=== PATIENT | female | born 1980 | race Caucasian/White ===

== ENCOUNTER 2017-03-04 14:25 | Inpatient (IN) | payer OTHER ==
[~2017-03-04] VITALS: Ht 160 cm; Wt 65.7 kg
[~2017-03-04 14:25] MED LIST: ALEVE220 MG PO; ATIVAN0.5 MG PO; CIPROFLOXACIN500 M1 PO; CREON 10 CAPSUL1 CA1 PO; CREON DR 12,001 EACH PO; DILAUDID 2 MG TA2 MG PO; IRON325 PO; KEFLEX500 MG PO; LISINOPRIL2.5 MG PO; MACROBID 100 M100 M1 PO; NORCO 5-325 TA1 EACH PO; ONDANSETRON HCL4 M2 PO; OXYCODONE HCL 55 MG PO; PERCOCET 5-3251 EACH PO; PHENERGAN 25 MG25 M1 PO; TRAMADOL 50 MG50 MG PO; TYLENOL325 MG PO; ZESTRIL2.5 MG PO; ZOFRAN 4 MG ORAL4 MG PO; ZOFRAN ODT4 MG PO; ZOFRAN4 MG PO
[2017-03-04 14:26] VITALS: BP 160/108
[2017-03-04 14:39] LABS: URINE BILIRUBIN NEGATIVE (Negative); URINE BLOOD NEGATIVE (Negative); URINE COLOR YELLOW; URINE GLUCOSE-RANDOM* NEGATIVE (Negative); URINE KETONES NEGATIVE (Negative); URINE NITRITE NEGATIVE (Negative); URINE PROTEIN (DIPSTICK) NEGATIVE (Negative); URINE UROBILINOGEN 0.2 E.U./dl (0.2-1.0)
[2017-03-04 15:11] LABS: HEMATOCRIT 30.2 % (37.0-47.0); HEMOGLOBIN 9.2 gm/dL (12.0-15.0); MANUAL DIFF YES; MCH 21.2 pg (26.0-34.0); MCHC 30.6 g/dL (28.0-37.0); MCV 69.3 fL (80.0-100.0); PLATELET COUNT 549 thou/uL (150-400); RBC 4.36 mil/uL (4.20-5.00); RDW 23.7 % (10.5-14.5); WBC 8.9 thou/uL (4.0-11.0)
[2017-03-04 15:13] LABS: AMP/METHAMP Negative (Negative); BARBITURATES Negative (Negative); BENZODIAZEPINES Negative (Negative); COCAINE Negative (Negative); METHADONE Negative (Negative); OPIATES POSITIVE (Negative); PCP Negative (Negative); THC POSITIVE (Negative)
[2017-03-04 15:16] LABS: CREATININE 0.6 mg/dL (0.6-1.0); POTASSIUM 4.5 mmol/L (3.5-5.1)
[2017-03-04 15:20] LABS: ALBUMIN 2.6 g/dL (3.4-5.0); TOTAL BILIRUBIN 0.3 mg/dL (<0.1-1.0); TOTAL PROTEIN 6.6 g/dL (6.4-8.2)
[2017-03-04 15:31] LABS: ABSOLUTE NEUTROPHILS 4.8 thou/uL (1.4-8.2); TOTAL CELL COUNT 100
[2017-03-04 15:32] LABS: HYPOCHROMASIA 3+; MICROCYTES 2+
[2017-03-04 15:33] LABS: ANISOCYTOSIS 3+; POIKILOCYTOSIS 1+; TARGET CELLS 2+
[2017-03-04 15:34] LABS: HOWELL-JOLLY BODIES OCCASIONAL
[2017-03-04 17:18] VITALS: BP 132/86
[2017-03-04 17:43] VITALS: BP 146/106
[2017-03-04 17:53] VITALS: BP 152/92
[2017-03-04 18:28] VITALS: BP 146/92
[2017-03-04 20:00] VITALS: BP 137/102
[2017-03-05 04:00] VITALS: BP 113/69
[2017-03-05 06:28] LABS: ALBUMIN 2.2 g/dL (3.4-5.0); CREATININE 0.7 mg/dL (0.6-1.0); MAGNESIUM 1.6 mg/dL (1.8-2.4); POTASSIUM 4.2 mmol/L (3.5-5.1); TOTAL BILIRUBIN 0.2 mg/dL (<0.1-1.0); TOTAL PROTEIN 5.1 g/dL (6.4-8.2)
[2017-03-05 07:25] VITALS: BP 131/74
[2017-03-05] MEDS ORDERED: OXYCONTIN10 M1 PO (09:35)
[2017-03-05] MEDS ORDERED: PERCOCET 7.5-31 EACH PO (09:35)
[2017-03-05 13:07] VITALS: BP 131/74
== END 2017-03-05 13:17 | disposition home or self-care (01) | DRG 392 ==
LOC: ER 14:25 → 4E 16:29 → EROBS 16:29 → 4E 17:21
PROVIDERS: Emergency Medicine; Hospitalist; Physician Assistant
DX: R10.9 Unspecified abdominal pain (principal); G89.29 Other chronic pain; R11.2 Nausea with vomiting, unspecified; K21.9 Gastro-esophageal reflux disease without esophagitis; F32.9 Major depressive disorder, single episode, unspecified; F17.210 Nicotine dependence, cigarettes, uncomplicated; F12.90 Cannabis use, unspecified, uncomplicated; Z90.49 Acquired absence of other specified parts of digestive tract; Z88.6 Allergy status to analgesic agent; Z90.3 Acquired absence of stomach [part of]; Z90.81 Acquired absence of spleen; Z79.899 Other long term (current) drug therapy
CPT/HCPCS: 10084

== ENCOUNTER 2017-06-10 14:38 | Inpatient (IN) | payer OTHER ==
[~2017-06-10] VITALS: Ht 160 cm; Wt 61.5 kg
[~2017-06-10 14:38] MED LIST changes: +OXYCONTIN10 M1 PO; +PERCOCET 7.5-31 EACH PO
[2017-06-10 14:39] VITALS: BP 164/134
[2017-06-10 14:58] LABS: URINE BILIRUBIN NEGATIVE (Negative); URINE BLOOD 2+ (Negative); URINE COLOR YELLOW; URINE GLUCOSE-RANDOM* NEGATIVE (Negative); URINE KETONES NEGATIVE (Negative); URINE NITRITE NEGATIVE (Negative); URINE PROTEIN (DIPSTICK) 1+ (Negative); URINE SPECIFIC GRAVITY >= 1.030 (1.003-1.035); URINE UROBILINOGEN 0.2 E.U./dl (0.2-1.0)
[2017-06-10 15:07] LABS: SQUAMOUS >10 Many /LPF (0-3)
[2017-06-10 15:08] LABS: CRYSTALS None Seen /LPF (None Seen); HYALINE CASTS 0-3 Few /LPF (None Seen); URINE RBC 3-10 Few /HPF (0-2)
[2017-06-10 16:29] LABS: HEMOGLOBIN 10.3 gm/dL (12.0-15.0); MANUAL DIFF YES; MCH 22.6 pg (26.0-34.0); MCHC 30.3 g/dL (28.0-37.0); MCV 74.7 fL (80.0-100.0); PLATELET COUNT 493 thou/uL (150-400); RBC 4.55 mil/uL (4.20-5.00); RDW 20.7 % (10.5-14.5); WBC 14.2 thou/uL (4.0-11.0)
[2017-06-10 16:35] LABS: CALCIUM 8.7 mg/dL (8.5-10.1); CREATININE 0.7 mg/dL (0.6-1.0); POTASSIUM 3.9 mmol/L (3.5-5.1)
[2017-06-10 16:39] LABS: ALBUMIN 2.9 g/dL (3.4-5.0); TOTAL BILIRUBIN 0.3 mg/dL (<0.1-1.0); TOTAL PROTEIN 6.8 g/dL (6.4-8.2)
[2017-06-10 17:01] LABS: ABSOLUTE NEUTROPHILS 11.8 thou/uL (1.4-8.2); TOTAL CELL COUNT 100
[2017-06-10 17:02] LABS: TARGET CELLS 3+
[2017-06-10 17:03] LABS: ANISOCYTOSIS 2+; LARGE PLATELETS FEW; MICROCYTES 2+; SCHISTOCYTES 2+
[2017-06-10 18:46] LABS: AMP/METHAMP Negative (Negative); BARBITURATES Negative (Negative); BENZODIAZEPINES Negative (Negative); COCAINE Negative (Negative); METHADONE Negative (Negative); OPIATES Negative (Negative); PCP Negative (Negative); THC Negative (Negative)
[2017-06-10 21:06] VITALS: BP 191/111
[2017-06-10 21:52] VITALS: BP 143/93
[2017-06-10 23:34] VITALS: BP 149/91
[2017-06-11 04:05] VITALS: BP 142/101
[2017-06-11 06:34] LABS: HEMOGLOBIN 9.4 gm/dL (12.0-15.0); MCH 23.1 pg (26.0-34.0); MCHC 31.2 g/dL (28.0-37.0); PLATELET COUNT 460 thou/uL (150-400); RBC 4.05 mil/uL (4.20-5.00); RDW 21.4 % (10.5-14.5); WBC 12.1 thou/uL (4.0-11.0)
[2017-06-11 06:37] LABS: CALCIUM 8.2 mg/dL (8.5-10.1); CREATININE 0.6 mg/dL (0.6-1.0); POTASSIUM 3.6 mmol/L (3.5-5.1)
[2017-06-11 06:41] LABS: % SATURATION 8 % (20-39); IRON 34 ug/dL (50-170); TIBC 445 ug/dL (250-450); UIBC 411 ug/dL
[2017-06-11 06:55] LABS: MANUAL DIFF YES
[2017-06-11 08:00] VITALS: BP 142/93
[2017-06-11 08:13] LABS: ABSOLUTE NEUTROPHILS 6.1 thou/uL (1.4-8.2); TOTAL CELL COUNT 100
[2017-06-11 08:16] LABS: ANISOCYTOSIS 2+; HYPOCHROMASIA 2+; MICROCYTES 1+; PLATELET ESTIMATE INCREASED
[2017-06-11 08:17] LABS: POIKILOCYTOSIS 2+; SCHISTOCYTES 1+; TARGET CELLS 2+
[2017-06-11 16:00] VITALS: BP 189/111
[2017-06-11 19:52] VITALS: BP 166/96
[2017-06-12 03:45] VITALS: BP 145/86
[2017-06-12 03:55] LABS: BASOPHILS 1.1 % (0.0-2.0); EOSINOPHILS 0.3 % (0.0-3.0); HEMOGLOBIN 8.4 gm/dL (12.0-15.0); MCV 73.9 fL (80.0-100.0); RDW 21.3 % (10.5-14.5)
[2017-06-12 03:58] LABS: ABSOLUTE NEUTROPHILS 9.2 thou/uL (1.4-8.2); MCH 23.1 pg (26.0-34.0); MCHC 31.3 g/dL (28.0-37.0); MONOCYTES 5.8 % (1.0-8.0); PLATELET COUNT 393 thou/uL (150-400); POLYS 79.8 % (36.0-66.0); RBC 3.65 mil/uL (4.20-5.00); WBC 11.5 thou/uL (4.0-11.0)
[2017-06-12 03:59] LABS: MANUAL DIFF NO
[2017-06-12 04:14] LABS: ALBUMIN 2.1 g/dL (3.4-5.0); CREATININE 0.6 mg/dL (0.6-1.0); MAGNESIUM 1.3 mg/dL (1.8-2.4); POTASSIUM 3.8 mmol/L (3.5-5.1); TOTAL BILIRUBIN 0.3 mg/dL (<0.1-1.0); TOTAL PROTEIN 5.6 g/dL (6.4-8.2)
[2017-06-12 05:12] LABS: ANISOCYTOSIS 2+; HYPOCHROMASIA 1+
[2017-06-12 05:13] LABS: MICROCYTES 1+
[2017-06-12 05:14] LABS: HOWELL-JOLLY BODIES OCCASIONAL
[2017-06-12 05:15] LABS: BURR CELLS FEW; OVALOCYTES OCCASIONAL; TARGET CELLS OCCASIONAL
[2017-06-12 05:16] LABS: POIKILOCYTOSIS 1+; POLYCHROMASIA OCCASIONAL; SCHISTOCYTES OCCASIONAL
[2017-06-12 08:21] VITALS: BP 148/62
[2017-06-12 15:08] VITALS: BP 145/91
[2017-06-12 20:11] VITALS: BP 150/92
[2017-06-13 04:08] VITALS: BP 143/77
[2017-06-13 05:36] LABS: HEMOGLOBIN 8.6 gm/dL (12.0-15.0)
[2017-06-13 05:39] LABS: HEMATOCRIT 27.5 % (37.0-47.0); MCH 23.5 pg (26.0-34.0); MCHC 31.2 g/dL (28.0-37.0); MCV 75.3 fL (80.0-100.0); PLATELET COUNT 419 thou/uL (150-400); RBC 3.65 mil/uL (4.20-5.00); RDW 21.7 % (10.5-14.5); WBC 8.3 thou/uL (4.0-11.0)
[2017-06-13 05:41] LABS: MANUAL DIFF YES
[2017-06-13 06:09] LABS: ALBUMIN 2.2 g/dL (3.4-5.0); CALCIUM 8.4 mg/dL (8.5-10.1); CREATININE 0.6 mg/dL (0.6-1.0); MAGNESIUM 1.7 mg/dL (1.8-2.4); POTASSIUM 3.3 mmol/L (3.5-5.1); TOTAL BILIRUBIN 0.2 mg/dL (<0.1-1.0); TOTAL PROTEIN 5.8 g/dL (6.4-8.2)
[2017-06-13 08:00] VITALS: BP 156/91
[2017-06-13 10:00] LABS: ABSOLUTE NEUTROPHILS 4.4 thou/uL (1.4-8.2); NUCLEATED RBCS 1 /100WBC; TOTAL CELL COUNT 100
[2017-06-13 10:01] LABS: ANISOCYTOSIS 2+; HYPOCHROMASIA 1+
[2017-06-13 10:02] LABS: SCHISTOCYTES RARE
[2017-06-13 16:00] VITALS: BP 150/108
[2017-06-13 21:02] VITALS: BP 167/99
[2017-06-14 03:32] VITALS: BP 1401/86
[2017-06-14 05:37] LABS: CALCIUM 7.6 mg/dL (8.5-10.1); CREATININE 0.5 mg/dL (0.6-1.0)
[2017-06-14 07:30] VITALS: BP 156/104
== END 2017-06-14 09:50 | disposition left against medical advice (07) | DRG 439 ==
LOC: ER 14:38 → EROBS 18:30 → 3N 18:30
PROVIDERS: Internal Medicine Endocrinology, Diabetes & Metabolism; Internal Medicine Gastroenterology; Nurse Practitioner; Physician Assistant
DX: K85.90 Acute pancreatitis without necrosis or infection, unspecified (principal); F11.20 Opioid dependence, uncomplicated; R44.3 Hallucinations, unspecified; N39.0 Urinary tract infection, site not specified; E46 Unspecified protein-calorie malnutrition; K86.1 Other chronic pancreatitis; I10 Essential (primary) hypertension; D72.829 Elevated white blood cell count, unspecified; F41.9 Anxiety disorder, unspecified; D64.9 Anemia, unspecified; E83.42 Hypomagnesemia; E87.6 Hypokalemia; F17.210 Nicotine dependence, cigarettes, uncomplicated; F12.90 Cannabis use, unspecified, uncomplicated; R41.0 Disorientation, unspecified; K76.0 Fatty (change of) liver, not elsewhere classified; Z53.21 Procedure and treatment not carried out due to patient leaving prior to being seen by health care provider; Z79.899 Other long term (current) drug therapy; Z88.6 Allergy status to analgesic agent; Z91.018 Allergy to other foods; Z90.49 Acquired absence of other specified parts of digestive tract; Z90.3 Acquired absence of stomach [part of]; Z90.81 Acquired absence of spleen; Z91.14 Patient's other noncompliance with medication regimen; Z71.6 Tobacco abuse counseling; Z68.24 Body mass index [BMI] 24.0-24.9, adult; K21.9 Gastro-esophageal reflux disease without esophagitis
CPT/HCPCS: 10094